=== PATIENT | female | born 1985 | race African-American/Black ===

== ENCOUNTER 2017-01-04 19:35 | Emergency (ER) | payer OTHER, SELFPAY ==
[2017-01-04 20:22] LABS: Bilirubin Negative (Negative); Blood, Urine Negative (Negative); Clarity Clear (Clear); Glucose, Urine (Dipstick) Negative (Negative); Leukocyte Negative (Negative); Nitrite Negative (Negative); Protein, Urine (Dipstick) Negative (Neg-Trace); Specific Gravity, Urine 1.015 (1.005-1.030)
[2017-01-04 20:23] LABS: Pregu Control Bar Appear? YES (CONTROL BAR); Specific Gravity 1.015 (1.002-1.036)
[2017-01-04] MEDS ORDERED: Ondansetron ODT 4 MG TAB ONE (20:37)
== END 2017-01-04 20:50 | disposition home or self-care (01) ==
LOC: MADERS 19:35
DX: R11.0 Nausea (principal); F17.210 Nicotine dependence, cigarettes, uncomplicated; Z79.899 Other long term (current) drug therapy
CPT/HCPCS: 81003; 81025; 99283; Q0162

== ENCOUNTER 2017-04-20 12:00 | Outpatient (CLI) | payer MEDICAID ==
[2017-04-21 23:35] LABS: GC by PCR Not Detected (NotDetected)
== END 2017-04-20 12:01 | disposition home or self-care (01) ==
LOC: MADLABBHPM 12:00
PROVIDERS: ATTEND Family Medicine
DX: Z01.419 Encounter for gynecological examination (general) (routine) without abnormal findings (principal)
CPT/HCPCS: 36415; 87480; 87510; 87591; 87660; 88142; G0123

== ENCOUNTER 2017-05-03 11:47 | Emergency (ER) | payer MEDICAID ==
[2017-05-03] MEDS ORDERED: Dexamethasone 4 MG TAB ONE (12:31)
[2017-05-03] MEDS ORDERED: Ibuprofen 800 MG TAB ONE (12:31)
[2017-05-03] MEDS ORDERED: Acetaminophen 500 MG TAB ONE (12:31)
== END 2017-05-03 13:11 | disposition home or self-care (01) ==
LOC: MADERS 11:47
DX: M25.562 Pain in left knee (principal); F17.210 Nicotine dependence, cigarettes, uncomplicated; Z79.899 Other long term (current) drug therapy
CPT/HCPCS: 99283; J8540

== ENCOUNTER 2017-05-03 21:36 | Emergency (ER) | payer MEDICAID | END 2017-05-03 22:37 | disposition home or self-care (01) | LOC: MADERS 21:36 | DX: F41.9 Anxiety disorder, unspecified (principal); R20.0 Anesthesia of skin; T38.0X5A Adverse effect of glucocorticoids and synthetic analogues, initial encounter; F17.210 Nicotine dependence, cigarettes, uncomplicated; Z79.891 Long term (current) use of opiate analgesic; Z79.899 Other long term (current) drug therapy | CPT/HCPCS: 99283; J8540 ==

== ENCOUNTER 2018-08-12 01:47 | Emergency (ER) | payer SELFPAY, OTHER, MEDICAID ==
[2018-08-12] MEDS ORDERED: Ibuprofen 800 MG TAB ONE (02:40)
== END 2018-08-12 02:51 | disposition home or self-care (01) ==
LOC: MADERS 01:47
DX: J02.9 Acute pharyngitis, unspecified (principal); F41.9 Anxiety disorder, unspecified; F17.210 Nicotine dependence, cigarettes, uncomplicated; Z79.899 Other long term (current) drug therapy
CPT/HCPCS: 87081; 87430; 99283

== ENCOUNTER 2018-08-12 19:52 | Emergency (ER) | payer SELFPAY, OTHER, MEDICAID ==
[2018-08-12] MEDS ORDERED: cefTRIAXone\\ROCEPHIN 1 GM VIAL ONE (20:35)
== END 2018-08-12 21:10 | disposition home or self-care (01) ==
LOC: MADERS 19:52
DX: J02.9 Acute pharyngitis, unspecified (principal); F41.9 Anxiety disorder, unspecified; F17.210 Nicotine dependence, cigarettes, uncomplicated; Z79.899 Other long term (current) drug therapy
CPT/HCPCS: 96372; J0696; J1040

== ENCOUNTER 2019-05-23 19:47 | Emergency (ER) | payer OTHER ==
[2019-05-23] MEDS ORDERED: Dexamethasone 4 MG TAB ONE (20:54)
== END 2019-05-23 21:05 | disposition home or self-care (01) ==
LOC: MADERS 19:47
DX: J02.9 Acute pharyngitis, unspecified (principal); K13.0 Diseases of lips; F41.9 Anxiety disorder, unspecified; F32.9 Major depressive disorder, single episode, unspecified; F17.210 Nicotine dependence, cigarettes, uncomplicated
CPT/HCPCS: 87081; 87430; 99283; J8540

== ENCOUNTER 2019-06-24 10:06 | Emergency (ER) | payer OTHER ==
[2019-06-24] MEDS ORDERED: Acetaminophen 500 MG TAB ONE (10:55)
[2019-06-24] MEDS ORDERED: Fluconazole 100 MG TAB ONE (11:44)
== END 2019-06-24 11:17 | disposition home or self-care (01) ==
LOC: MADERS 10:06
DX: B34.9 Viral infection, unspecified (principal); B37.0 Candidal stomatitis; F41.9 Anxiety disorder, unspecified; F32.9 Major depressive disorder, single episode, unspecified; F17.210 Nicotine dependence, cigarettes, uncomplicated
CPT/HCPCS: 87081; 87430; 87804; 99283

== ENCOUNTER 2019-06-27 15:24 | Emergency (ER) | payer OTHER | END 2019-06-27 16:02 | disposition home or self-care (01) | LOC: MADERS 15:24 | DX: O99.89 Other specified diseases and conditions complicating pregnancy, childbirth and the puerperium (principal); R10.9 Unspecified abdominal pain; O99.343 Other mental disorders complicating pregnancy, third trimester; F41.9 Anxiety disorder, unspecified; F32.9 Major depressive disorder, single episode, unspecified; O99.333 Smoking (tobacco) complicating pregnancy, third trimester; F17.210 Nicotine dependence, cigarettes, uncomplicated; Z79.899 Other long term (current) drug therapy; Z3A.39 39 weeks gestation of pregnancy | CPT/HCPCS: 99283 ==

== ENCOUNTER 2020-06-21 10:47 | Emergency (ER) | payer OTHER ==
[2020-06-21] MEDS ORDERED: Clindamycin 150 MG CAP ONE ×2 (11:16→11:18)
[2020-06-21] MEDS ORDERED: Ibuprofen 800 MG TAB ONE (11:16)
[2020-06-21] MEDS ORDERED: HYDROcodone/Acetaminophen 5/325 mg Tablet ONE (11:20)
== END 2020-06-21 11:28 | disposition home or self-care (01) ==
LOC: MADERS 10:47
DX: K04.7 Periapical abscess without sinus (principal); K02.9 Dental caries, unspecified; F17.210 Nicotine dependence, cigarettes, uncomplicated; F41.9 Anxiety disorder, unspecified; F32.9 Major depressive disorder, single episode, unspecified; Z79.899 Other long term (current) drug therapy
CPT/HCPCS: 99282

== ENCOUNTER 2020-07-21 09:12 | Emergency (ER) | payer OTHER ==
[2020-07-21 09:46] LABS: Bilirubin Negative (Negative); Blood, Urine Moderate (Negative); Clarity Clear (Clear); Glucose, Urine (Dipstick) Negative (Negative); Ketone, Urine Negative (Negative); Leukocyte Small (Negative); Nitrite Negative (Negative); Protein, Urine (Dipstick) 100 mg/dL (Neg-Trace); Urobilinogen 0.2 mg/dL (Less than 2); pH, Urine 5.5 (5.0-9.0)
[2020-07-21 09:51] LABS: Bacteria/HPF 1+ HPF (None Seen)
[2020-07-21] MEDS ORDERED: Ibuprofen 800 MG TAB ONE (09:57)
== END 2020-07-21 10:03 | disposition home or self-care (01) ==
LOC: MADERS 09:12
DX: N39.0 Urinary tract infection, site not specified (principal); F41.9 Anxiety disorder, unspecified; F32.9 Major depressive disorder, single episode, unspecified; F17.210 Nicotine dependence, cigarettes, uncomplicated; Z79.899 Other long term (current) drug therapy
CPT/HCPCS: 81003; 81015; 99283

== ENCOUNTER 2020-08-26 10:22 | Emergency (ER) | payer OTHER ==
[2020-08-26 10:46] LABS: Bilirubin Negative (Negative); Blood, Urine Moderate (Negative); Clarity Cloudy (Clear); Glucose, Urine (Dipstick) Negative (Negative); Ketone, Urine Negative (Negative); Leukocyte Large (Negative); Nitrite Negative (Negative); Protein, Urine (Dipstick) 30 mg/dL (Neg-Trace); Specific Gravity, Urine 1.015 (1.005-1.030); Urobilinogen 0.2 mg/dL (Less than 2); pH, Urine 5.5 (5.0-9.0)
[2020-08-26 10:52] LABS: Bacteria/HPF 2+ HPF (None Seen); Squamous Epithelial 0-3 HPF (0-3); WBC/HPF Greater Than 50 HPF (0-3)
[2020-08-26] MEDS ORDERED: Lidocaine 1% 20 ML MDV ONE (11:13)
[2020-08-26] MEDS ORDERED: cefTRIAXone\\ROCEPHIN 1 GM VIAL ONE (11:13)
== END 2020-08-26 11:43 | disposition home or self-care (01) ==
LOC: MADERS 10:22
DX: N10 Acute pyelonephritis (principal); N30.00 Acute cystitis without hematuria; Z71.6 Tobacco abuse counseling; F17.210 Nicotine dependence, cigarettes, uncomplicated; F41.9 Anxiety disorder, unspecified; F32.9 Major depressive disorder, single episode, unspecified; Z79.899 Other long term (current) drug therapy
CPT/HCPCS: 81003; 81015; 87077; 87086; 87186; 96372; 99406; J0696

== ENCOUNTER 2021-01-19 16:43 | Emergency (ER) | payer OTHER | END 2021-01-19 17:25 | disposition home or self-care (01) | LOC: MADERS 16:43 | DX: J01.00 Acute maxillary sinusitis, unspecified (principal); J01.10 Acute frontal sinusitis, unspecified; J06.9 Acute upper respiratory infection, unspecified; E66.9 Obesity, unspecified; F17.210 Nicotine dependence, cigarettes, uncomplicated | CPT/HCPCS: 99283 ==

== ENCOUNTER 2021-12-09 12:01 | Emergency (ER) | payer OTHER | END 2021-12-09 12:45 | disposition home or self-care (01) | LOC: MADERS 12:01 | DX: J06.9 Acute upper respiratory infection, unspecified (principal); F17.210 Nicotine dependence, cigarettes, uncomplicated | CPT/HCPCS: 99283 ==

== ENCOUNTER 2022-02-19 13:38 | Emergency (ER) | payer OTHER | END 2022-02-19 15:30 | disposition left against medical advice (07) | LOC: MADERS 13:38 | DX: Z53.21 Procedure and treatment not carried out due to patient leaving prior to being seen by health care provider (principal) ==

== ENCOUNTER 2022-02-20 12:33 | Emergency (ER) | payer OTHER ==
[2022-02-20 13:24] LABS: Bilirubin Small (Negative); Blood, Urine Negative (Negative); Glucose, Urine (Dipstick) Negative (Negative); Ketone, Urine 40 mg/dL (Negative); Leukocyte Negative (Negative); Nitrite Negative (Negative); Protein, Urine (Dipstick) Negative (Neg-Trace); Specific Gravity, Urine 1.025 (1.005-1.030); pH, Urine 5.5 (5.0-9.0)
[2022-02-20 13:25] LABS: Clarity Hazy (Clear)
== END 2022-02-20 13:38 | disposition home or self-care (01) ==
LOC: MADERS 12:33
DX: S39.012A Strain of muscle, fascia and tendon of lower back, initial encounter (principal); E66.01 Morbid (severe) obesity due to excess calories; Z87.891 Personal history of nicotine dependence; X58.XXXA Exposure to other specified factors, initial encounter
CPT/HCPCS: 81003; 99283

== ENCOUNTER 2022-07-04 18:07 | Emergency (ER) | payer OTHER ==
[2022-07-04 18:39] LABS: #Eosinphils 0.1 thou/uL (0.0-0.7); #Lymphocytes 1.2 thou/uL (1.20-3.40); #Monocytes 0.6 thou/uL (0.11-0.59); #Neutrophils 3.1 thou/uL (1.40-6.50); %Basophils 0.7 % (0.0-1.0); %Eosinophils 2.5 % (0.0-10.0); %Lymphocytes 24.1 % (21.0-51.0); %Monocytes 11.7 % (0.0-10.0); Hemoglobin 11.6 g/dL (12.0-16.0); Mean Corpuscular HGB CONC 31.1 g/dL (32.0-36.0); Mean Corpuscular Hemoglobin 28.1 pg (27.0-31.0); Mean Corpuscular Volume 90.4 fL (78.0-98.0); Mean Platelet Volume 6.7 fL (7.4-10.4); Platelet Count 205 thou/uL (130-400); RBC Distribution Width 13.2 % (11.5-14.5); Red Blood Cell (RBC) Count 4.12 mill/uL (4.20-5.40); White Blood Cell (WBC) Count 5.1 thou/uL (4.8-10.8)
[2022-07-04 18:43] LABS: Prothrombin Time 13.3 sec (12.0-14.7)
[2022-07-04] MEDS ORDERED: Tranexamic Acid 1,000 MG/10 ML VIAL ONE (18:43)
[2022-07-04 18:44] LABS: PTT 28.1 sec (22.9-36.1)
[2022-07-04] MEDS ORDERED: Oxytocin 10 UNITS/ML VIAL ONE (18:45)
[2022-07-04 18:51] LABS: ALT (SGPT) 8 U/L (8-55); AST (SGOT) 17 U/L (5-34); Albumin 3.7 g/dL (3.5-5.0); Alkaline Phosphatase 146 U/L (40-110); Anion Gap 23 mmol/L (10-20); BUN (Urea Nitrogen) Less than 4 mg/dL (7.0-18.7); Bilirubin, Total 1.9 mg/dL (0.2-1.2); Calc. Creatinine Clearance 0 mL/min (70-130); Calcium 9.4 mg/dL (7.8-10.44); Carbon Dioxide 18 mmol/L (22-29); Chloride 102 mmol/L (98-107); Estimated GFR 116; Globulin 3.5 g/dL (2.4-3.5); Glucose 100 mg/dL (70-105); Protein, Total 7.2 g/dL (6.0-8.3); Sodium 140 mmol/L (136-145)
[2022-07-04 18:57] LABS: Potassium 2.9 mmol/L (3.5-5.1)
[2022-07-04] MEDS ORDERED: Sodium Chloride 0.9% 100 ML ONE (19:05)
[2022-07-04] MEDS ORDERED: Potassium Chloride 20 MEQ TAB ONE (19:33)
[2022-07-04] MEDS ORDERED: Magnesium 2 GM/50 ML BAG (IN WATER) ONE ×2 (21:26→21:50)
[2022-07-04] MEDS ORDERED: Labetalol HCl 100 MG/20 ML VIAL ONE (21:50)
== END 2022-07-04 22:12 | disposition short-term general hospital (02) ==
LOC: MADERS 18:07
DX: O62.3 Precipitate labor (principal); O13.4 Gestational [pregnancy-induced] hypertension without significant proteinuria, complicating childbirth; Z3A.39 39 weeks gestation of pregnancy; Z37.0 Single live birth; Z87.891 Personal history of nicotine dependence
CPT/HCPCS: 59414; 80053; 85025; 85610; 85730; 86850; 86900; 86901; 96365; 96372; 96375; 96376; J2590; J3475

== ENCOUNTER 2022-08-01 07:14 | Emergency (ER) | payer OTHER ==
[2022-08-01] MEDS ORDERED: traMADol HCl 50 MG TAB ONE (08:23)
[2022-08-01] MEDS ORDERED: Gabapentin 100 MG CAP ONE (08:23)
== END 2022-08-01 10:14 | disposition home or self-care (01) ==
LOC: MADERS 07:14
DX: G62.9 Polyneuropathy, unspecified (principal); M79.671 Pain in right foot; M79.672 Pain in left foot; I10 Essential (primary) hypertension; Z87.891 Personal history of nicotine dependence
CPT/HCPCS: 36416

== ENCOUNTER 2022-08-12 11:20 | Emergency (ER) | payer OTHER ==
[2022-08-12] MEDS ORDERED: traMADol HCl 50 MG TAB ONE (12:03)
== END 2022-08-12 12:14 | disposition home or self-care (01) ==
LOC: MADERS 11:20
DX: M79.671 Pain in right foot (principal); M79.672 Pain in left foot; I10 Essential (primary) hypertension; Z87.891 Personal history of nicotine dependence
CPT/HCPCS: 99283

== ENCOUNTER 2022-08-25 01:32 | Emergency (ER) | payer OTHER | END 2022-08-25 02:08 | disposition home or self-care (01) | LOC: MADERS 01:32 | DX: G62.9 Polyneuropathy, unspecified (principal); I10 Essential (primary) hypertension | CPT/HCPCS: 99283 ==

== ENCOUNTER 2022-10-01 16:27 | Emergency (ER) | payer OTHER ==
[2022-10-01] MEDS ORDERED: Ibuprofen 800 MG TAB ONE (17:26)
[2022-10-01] MEDS ORDERED: predniSONE 20 MG TAB ONE (17:26)
[2022-10-01] MEDS ORDERED: traMADol HCl 50 MG TAB ONE (17:26)
[2022-10-01 17:36] LABS: #Basophils 0.1 thou/uL (0.0-0.2); #Eosinphils 0.3 thou/uL (0.0-0.7); #Lymphocytes 1.4 thou/uL (1.20-3.40); #Monocytes 0.4 thou/uL (0.11-0.59); #Neutrophils 2.6 thou/uL (1.40-6.50); %Basophils 1.1 % (0.0-1.0); %Eosinophils 6.3 % (0.0-10.0); %Lymphocytes 29.3 % (21.0-51.0); %Monocytes 8.5 % (0.0-10.0); %Neutrophils 54.7 % (42.0-75.0); Hemoglobin 11.6 g/dL (12.0-16.0); Mean Corpuscular HGB CONC 32.1 g/dL (32.0-36.0); Mean Corpuscular Hemoglobin 29.4 pg (27.0-31.0); Mean Corpuscular Volume 91.5 fl (78.0-98.0); Mean Platelet Volume 8.2 fL (7.4-10.4); Platelet Count 238 10x3/uL (130-400); RBC Distribution Width 14.5 % (11.5-14.5); Red Blood Cell (RBC) Count 3.93 mill/uL (4.20-5.40); White Blood Cell (WBC) Count 4.8 10x3/uL (4.8-10.8)
[2022-10-01 17:52] LABS: BHCG - Serum Negative (NEGATIVE); Pregs Control Background? CLEAR/WHITE (CLR/WHITE); Pregs Control Bar Appear? YES (CONTROL BAR)
[2022-10-01 17:54] LABS: ALT (SGPT) 9 U/L (8-55); AST (SGOT) 11 U/L (5-34); Albumin 3.8 g/dL (3.5-5.0); Alkaline Phosphatase 55 U/L (40-110); Anion Gap 16 mmol/L (10-20); BUN (Urea Nitrogen) 11 mg/dL (7.0-18.7); Bilirubin, Total 0.5 mg/dL (0.2-1.2); Calc. Creatinine Clearance 0 mL/min (70-130); Calcium 9.2 mg/dL (7.8-10.44); Carbon Dioxide 30 mmol/L (22-29); Chloride 102 mmol/L (98-107); Estimated GFR 104; Glucose 94 mg/dL (70-105); Potassium 3.7 mmol/L (3.5-5.1); Protein, Total 6.8 g/dL (6.0-8.3); Sodium 144 mmol/L (136-145); Uric Acid 3.3 mg/dL (2.6-6.0)
== END 2022-10-01 18:24 | disposition home or self-care (01) ==
LOC: MADERS 16:27
DX: R60.9 Edema, unspecified (principal); M79.2 Neuralgia and neuritis, unspecified; I10 Essential (primary) hypertension; Z87.891 Personal history of nicotine dependence
CPT/HCPCS: 36415; 80053; 84550; 84703; 85025; 99284; J7512

== ENCOUNTER 2025-02-28 12:57 | Emergency (ER) | payer SELFPAY | END 2025-02-28 13:38 | disposition home or self-care (01) | LOC: MADERS 12:57 | DX: J02.9 Acute pharyngitis, unspecified (principal); I10 Essential (primary) hypertension; Z87.891 Personal history of nicotine dependence | CPT/HCPCS: 99282 ==